=== PATIENT | female | born 1980 | race Caucasian/White ===

== ENCOUNTER 2020-07-17 08:58 | Emergency (ER) | payer MEDICAID ==
[~2020-07-17] VITALS: Ht 162.6 cm; Wt 80.0 kg
[~2020-07-17 08:58] MED LIST: ONDA8TAB9 PO
[2020-07-17 09:02] VITALS: BP 183/115
[2020-07-17] MEDS ORDERED: CLIN300C70 PO (09:49)
[2020-07-17] MEDS ORDERED: ondansetron 4mg rapidly disintigrating tab PO ONE (09:50)
[2020-07-17] MEDS ORDERED: HYDROcodone/acetaminophen 5mg/325mg tablet PO ONE (09:50)
== END 2020-07-17 10:10 | disposition home or self-care (01) ==
LOC: ER 08:59
DX: K08.89 Other specified disorders of teeth and supporting structures (principal); K21.9 Gastro-esophageal reflux disease without esophagitis; F32.9 Major depressive disorder, single episode, unspecified; Z72.89 Other problems related to lifestyle; Z98.890 Other specified postprocedural states; Z88.0 Allergy status to penicillin; Z79.899 Other long term (current) drug therapy
CPT/HCPCS: 99283

== ENCOUNTER 2020-07-30 07:44 | Emergency (ER) | payer MEDICAID ==
[~2020-07-30] VITALS: Ht 162.6 cm; Wt 69.5 kg
[2020-07-30 08:24] LABS: BASOPHILS # (AUTO) 0.1 X10'3 (0-0.2); BASOPHILS % (AUTO) 0.9 % (0-1); EOSINOPHILS # (AUTO) 0.1 X10'3 (0-0.9); EOSINOPHILS % (AUTO) 1.3 % (0-6); HEMOGLOBIN 14.4 g/dl (12.0-16.0); LYMPHOCYTES # (AUTO) 2.9 X10'3 (1.1-4.8); LYMPHOCYTES % (AUTO) 36.3 % (21-51); MEAN CORPUSCULAR HEMOGLOBIN 32.8 PG (27.0-31.0); MEAN CORPUSCULAR HGB CONC 34.3 g/dL (33.0-36.5); MEAN CORPUSCULAR VOLUME 95.8 FL (78-98); MEAN PLATELET VOLUME 7.7 FL (7.4-10.4); MONOCYTES # (AUTO) 0.7 X10'3 (0-0.9); MONOCYTES % (AUTO) 8.6 % (2-12); NEUTROPHILS # (AUTO) 4.2 X10'3 (1.8-7.7); NEUTROPHILS % (AUTO) 52.9 % (42-75); PLATELET COUNT 396 X10'3 (140-440); RED BLOOD COUNT 4.38 X10'6 (4.20-5.60); RED CELL DISTRIBUTION WIDTH 13.5 % (11.5-14.5)
[2020-07-30 08:33] LABS: CLARITY,URINE SLIGHTLY CLOUDY (Clear); COLOR,URINE YELLOW (Yellow); GLUCOSE, URINE NEGATIVE (Neg); KETONES,URINE NEGATIVE (Neg); LEUKOCYTE ESTERASE ,URINE NEGATIVE (Neg); NITRITES, URINE NEGATIVE (Neg); OCCULT BLOOD,URINE NEGATIVE (Neg); PROTEIN,URINE NEGATIVE (Neg); UROBILINOGEN,URINE 0.2 E.U/dL (0.2-1.0)
[2020-07-30 08:34] LABS: UA COLLECTION TYPE CLN CATCH MIDSTREAM; URINE HCG NEGATIVE (NEG)
[2020-07-30 08:40] LABS: BACTERIA,URINE 2+ /HPF (Neg); MUCUS STRANDS FEW /LPF (Neg); RBC,URINE NONE SEEN /HPF (0-2); SQUAMOUS EPITHELIAL CELL,UR MANY /LPF (FEW); WBC CLUMPS,URINE MODERATE /HPF (NEGATIVE)
[2020-07-30 08:41] LABS: ALANINE AMINOTRANSFERASE 21 U/L (12-78); ALBUMIN 3.5 G/DL (3.4-5.0); ALKALINE PHOSPHATASE 72 IU/L (46-116); ANION GAP 6 (8-16); ASPARTATE AMINO TRANSFERASE 17 U/L (10-37); BILIRUBIN,TOTAL 0.2 MG/DL (0.1-1.0); BLOOD UREA NITROGEN 10 MG/DL (7-18); BUN/CREATININE RATIO 10.3 (6.6-38.0); CALCIUM 8.3 MG/DL (8.5-10.1); CHLORIDE 103 MMOL/L (99-107); CREATININE 0.97 MG/DL (0.40-0.90); GLUCOSE 85 MG/DL (70-104); LIPASE 144 U/L (73-393); POTASSIUM 3.4 MMOL/L (3.5-5.1); SODIUM 138 MMOL/L (135-145); TOTAL CARBON DIOXIDE 29.1 MMOL/L (24-32); eGFR 64 ML/MIN
--- NOTE | 2020-07-30 09:00 | NUR ---
DR. JACOBS AT BEDSIDE
[2020-07-30] MEDS ORDERED: acetaminophen 325mg tablet PO ONE (09:05)
[2020-07-30] MEDS ORDERED: ibuprofen tablet 400 MG TABLET PO ONE (09:05)
--- NOTE | 2020-07-30 09:09 | NUR ---
Pt updated with plan of care and is awaiting US.
[2020-07-30] MEDS ORDERED: metroNIDAZOLE 500mg tablet PO ONE ×2 (09:20→10:05)
[2020-07-30] MEDS ORDERED: CefTRIAXone 1000mg IM Kit (w/lidocaine diluent) IM ONE ×2 (09:20→10:00)
[2020-07-30] MEDS ORDERED: azithromycin 250mg tablet PO ONE ×2 (09:20→10:00)
--- NOTE | 2020-07-30 09:41 | NUR ---
US at bedside.
[2020-07-30 10:23] VITALS: BP 157/106
== END 2020-07-30 10:24 | disposition home or self-care (01) ==
LOC: ER 07:45
DX: R10.30 Lower abdominal pain, unspecified (principal); N76.0 Acute vaginitis; K21.9 Gastro-esophageal reflux disease without esophagitis; F32.9 Major depressive disorder, single episode, unspecified; Z98.890 Other specified postprocedural states; Z88.0 Allergy status to penicillin; Z79.899 Other long term (current) drug therapy
CPT/HCPCS: 36415; 76856; 80053; 81001; 81025; 83690; 85025; 87491; 87591; 93976; 96372; 99284; J0696; J3490

== ENCOUNTER 2023-08-20 09:49 | Emergency (ER) | payer MEDICAID ==
[~2023-08-20] VITALS: Ht 162.6 cm; Wt 80.0 kg
[2023-08-20 09:54] VITALS: RESP 18; TEMP 97.8
[2023-08-20 11:00] VITALS: BP 118/83
[2023-08-20 12:01] VITALS: PULSE 85; O2SAT 99
--- NOTE | 2023-08-20 13:14 | NUR ---
PT REFUSED VITALS
== END 2023-08-20 14:29 | disposition left against medical advice (07) ==
LOC: ER 09:50
DX: R10.9 Unspecified abdominal pain (principal); Z53.21 Procedure and treatment not carried out due to patient leaving prior to being seen by health care provider
CPT/HCPCS: 99281

== ENCOUNTER → 2023-10-23 | Outpatient (CLI) | payer BC, MEDICAID ==
[2023-10-23 12:48] LABS: BASOPHILS % (AUTO) 0.5 % (0-1); EOSINOPHILS # (AUTO) 0.2 X10'3 (0-0.9); EOSINOPHILS % (AUTO) 3.1 % (0-6); HEMATOCRIT 40.7 % (35.0-45.0); HEMOGLOBIN 13.7 g/dl (12.0-16.0); LYMPHOCYTES # (AUTO) 2.5 X10'3 (1.1-4.8); LYMPHOCYTES % (AUTO) 32.8 % (21-51); MEAN CORPUSCULAR HEMOGLOBIN 29.4 PG (27.0-31.0); MEAN CORPUSCULAR HGB CONC 33.7 g/dL (33.0-36.5); MEAN CORPUSCULAR VOLUME 87.1 FL (78-98); MEAN PLATELET VOLUME 7.2 FL (7.4-10.4); MONOCYTES # (AUTO) 0.5 X10'3 (0-0.9); MONOCYTES % (AUTO) 7.1 % (2-12); NEUTROPHILS # (AUTO) 4.3 X10'3 (1.8-7.7); NEUTROPHILS % (AUTO) 56.5 % (42-75); PLATELET COUNT 357 X10'3 (140-440); RED BLOOD COUNT 4.67 X10'6 (4.20-5.60); RED CELL DISTRIBUTION WIDTH 14.3 % (11.5-14.5); WHITE BLOOD COUNT 7.7 X10'3 (4.5-11.0)
[2023-10-23 13:34] LABS: ALBUMIN 3.8 G/DL (3.4-5.0); ANION GAP 6 (8-16); BLOOD UREA NITROGEN 6 MG/DL (7-18); BUN/CREATININE RATIO 8.1 (10.0-20.0); CALCIUM 8.9 MG/DL (8.5-10.1); CHLORIDE 101 MMOL/L (99-107); CREATININE 0.74 MG/DL (0.40-0.90); GLUCOSE 89 MG/DL (70-104); SODIUM 134 MMOL/L (135-145); eGFR 86 ML/MIN
== END | disposition home or self-care (01) ==
LOC: LAB 12:07
PROVIDERS: ATTEND Physician Assistant
DX: R10.84 Generalized abdominal pain (principal); L98.8 Other specified disorders of the skin and subcutaneous tissue; Z87.19 Personal history of other diseases of the digestive system
CPT/HCPCS: 36415; 80048; 85025; 85651; 86140

== ENCOUNTER 2023-10-28 09:24 | Emergency (ER) | payer BC, MEDICAID ==
[~2023-10-28] VITALS: Ht 162.6 cm; Wt 74.2 kg
[2023-10-28 09:44] VITALS: TEMP 97.3
[2023-10-28 10:56] LABS: BASOPHILS % (AUTO) 0.4 % (0-1); EOSINOPHILS # (AUTO) 0.1 X10'3 (0-0.9); EOSINOPHILS % (AUTO) 2.1 % (0-6); HEMATOCRIT 40.3 % (35.0-45.0); HEMOGLOBIN 13.4 g/dl (12.0-16.0); LYMPHOCYTES # (AUTO) 2.5 X10'3 (1.1-4.8); LYMPHOCYTES % (AUTO) 37.8 % (21-51); MEAN CORPUSCULAR HEMOGLOBIN 28.7 PG (27.0-31.0); MEAN CORPUSCULAR HGB CONC 33.2 g/dL (33.0-36.5); MEAN CORPUSCULAR VOLUME 86.3 FL (78-98); MEAN PLATELET VOLUME 7.1 FL (7.4-10.4); MONOCYTES # (AUTO) 0.5 X10'3 (0-0.9); MONOCYTES % (AUTO) 8.1 % (2-12); NEUTROPHILS # (AUTO) 3.4 X10'3 (1.8-7.7); NEUTROPHILS % (AUTO) 51.6 % (42-75); PLATELET COUNT 392 X10'3 (140-440); RED BLOOD COUNT 4.67 X10'6 (4.20-5.60); RED CELL DISTRIBUTION WIDTH 13.8 % (11.5-14.5); WHITE BLOOD COUNT 6.5 X10'3 (4.5-11.0)
[2023-10-28 11:10] LABS: ALANINE AMINOTRANSFERASE 40 U/L (12-78); ALBUMIN 3.5 G/DL (3.4-5.0); ALBUMIN/GLOBULIN RATIO 0.8 (1.1-1.5); ALKALINE PHOSPHATASE 109 IU/L (46-116); ANION GAP 8 (8-16); ASPARTATE AMINO TRANSFERASE 26 U/L (10-37); BILIRUBIN,TOTAL 0.2 MG/DL (0.1-1.0); BLOOD UREA NITROGEN 9 MG/DL (7-18); BUN/CREATININE RATIO 12.7 (10.0-20.0); CALCIUM 9.6 MG/DL (8.5-10.1); CHLORIDE 102 MMOL/L (99-107); CREATININE 0.71 MG/DL (0.40-0.90); GLUCOSE 86 MG/DL (70-104); POTASSIUM 4.2 MMOL/L (3.5-5.1); SODIUM 138 MMOL/L (135-145); TOTAL PROTEIN 7.8 G/DL (6.4-8.2); eCRCL 88 ML/MIN; eGFR 90 ML/MIN
[2023-10-28 11:11] LABS: LIPASE 26 U/L (16-77)
[2023-10-28 12:26] VITALS: BP 137/82; PULSE 74; RESP 18; O2SAT 100
[2023-10-28] MEDS ORDERED: ondansetron/PF 4mg/2ml inj IV ONE (12:35)
[2023-10-28] MEDS ORDERED: morphine 4 MG/ML inj SYRINge IV ONE ×2 (12:35→14:35)
[2023-10-28 12:46] LABS: BILIRUBIN,URINE NEGATIVE (Neg); CLARITY,URINE SLIGHTLY CLOUDY (Clear); COLOR,URINE YELLOW (Yellow); GLUCOSE, URINE NEGATIVE (Neg); KETONES,URINE NEGATIVE (Neg); LEUKOCYTE ESTERASE ,URINE NEGATIVE (Neg); NITRITES, URINE NEGATIVE (Neg); OCCULT BLOOD,URINE NEGATIVE (Neg); PH,URINE 5.5 (4.8-8.0); PROTEIN,URINE NEGATIVE (Neg); UROBILINOGEN,URINE 0.2 E.U/dL (0.2-1.0)
[2023-10-28 13:06] LABS: UA COLLECTION TYPE CLN CATCH MIDSTREAM
[2023-10-28 13:07] LABS: SQUAMOUS EPITHELIAL CELL,UR MANY /LPF (FEW)
[2023-10-28 13:09] LABS: TRANSITIONAL EPI CELLS,URINE FEW /HPF
[2023-10-28 13:10] LABS: WBC,URINE 0-4 /HPF (0-4)
[2023-10-28 13:11] LABS: RBC,URINE 0-2 /HPF (0-2)
[2023-10-28 13:12] LABS: BACTERIA,URINE FEW /HPF (Neg)
[2023-10-28 13:14] LABS: MUCUS STRANDS FEW /LPF (Neg)
[2023-10-28] MEDS ORDERED: iohexol 300mg/ml 100ml inj. ONE (13:14)
[2023-10-28] MEDS ORDERED: METR-159 PO (14:30)
[2023-10-28] MEDS ORDERED: LEVO-65 PO (14:30)
[2023-10-28] MEDS ORDERED: HYDR-3965 PO (14:31)
== END 2023-10-28 15:14 | disposition home or self-care (01) ==
LOC: ER 09:25
DX: K52.9 Noninfective gastroenteritis and colitis, unspecified (principal)
CPT/HCPCS: 36415; 74177; 80053; 81001; 83690; 84702; 85025; 87210; 96374; 96375; 96376; 99285; J2270; J2405; J3490; Q9967

== ENCOUNTER 2024-06-23 13:55 | Emergency (ER) | payer BC, MEDICAID ==
[~2024-06-23] VITALS: Ht 162.6 cm; Wt 83.3 kg
[2024-06-23] MEDS ORDERED: VALA100031 PO ×2 (15:40→16:10)
[2024-06-23] MEDS ORDERED: OXYC-145 PO ×2 (15:41→16:10)
[2024-06-23] MEDS: ketorolac trometh 15mg/ml vial 15 MG/ML ML IM ONE (15:42)
[2024-06-23 16:52] VITALS: BP 132/74; PULSE 61; RESP 18; TEMP 98; O2SAT 98
== END 2024-06-23 16:54 | disposition home or self-care (01) ==
LOC: ER 13:56
DX: B02.9 Zoster without complications (principal); K21.9 Gastro-esophageal reflux disease without esophagitis; F32.A Depression, unspecified; Z88.0 Allergy status to penicillin; Z79.2 Long term (current) use of antibiotics; Z79.899 Other long term (current) drug therapy
CPT/HCPCS: 96372; 99283; J1885

== ENCOUNTER 2025-07-07 19:45 | Emergency (ER) | payer BC, MEDICAID ==
[~2025-07-07 19:45] MED LIST changes: +OXYC-145 PO; +VALA100031 PO
== END 2025-07-07 20:41 | disposition left against medical advice (07) ==
LOC: ER 19:46
DX: M79.673 Pain in unspecified foot (principal); Z53.21 Procedure and treatment not carried out due to patient leaving prior to being seen by health care provider; Z88.0 Allergy status to penicillin

== ENCOUNTER 2025-07-08 08:59 | Emergency (ER) | payer OTHER, MEDICAID ==
[~2025-07-08] VITALS: Ht 162.6 cm; Wt 69.4 kg
[2025-07-08 09:03] VITALS: BP 137/92; PULSE 79; RESP 16; O2SAT 99
--- NOTE | 2025-07-08 09:31 | Physician Documentation ---
History of Present Illness ~ Chief Complaint: Foot pain Stated Complaint: L FOOT PAIN WC Time Seen by MD: 09:07 Primary Medical Doctor: Aracely Benjamin Source: patient Mode of Arrival: POV Exam Limitations: no limitations HPI 44-year-old female with left foot pain since yesterday. She states that she was at work and was pushing a cart that brings in shopping carts and reports this cart weighs about 1000 lb and it rolled over her left foot. She has had pain in her left foot since this occurred. Pain is worse when she weight bears on her foot. No prior injuries to her foot. No pain in her ankle or anywhere else there was not an actual fall. Tetanus witin 5 years: No Medication Reconciliation Allergies: Coded Allergies: Penicillins (Verified Allergy, Intermediate, RASH/HIVES, 07/08/25) Scheduled Valacyclovir HCl (Valacyclovir), 1 TAB PO Q8H Scheduled PRN Ondansetron (Zofran Odt), 8 MG PO QID PRN for nausea/vomiting Oxycodone HCl/Acetaminophen (Percocet 5-325 mg Tablet), 1 TAB PO Q12H PRN PRN for pain Past Medical History Past Medical History: Diverticulitis, Diverticulosis, GERD, Depression Past Surgical History: other Alcohol Use: Occasionally Drug Use: none Lives In: Home Review of Systems All Other Systems at this time: Reviewed and Negative Physical Exam Vital Signs: Temperature: 97.6, Source: Temporal, Heart Rate: 79, Respiratory Rate: 16, BP: 137/92, Pulse Oximetry: 99, Weight: 69.400 Oxygen Flow Rate: 0 Physical Exam General Appearance: Alert, WD/WN. NAD. HEENT: NCAT, PERRL, EOMI. Neck: Supple, trachea midline. Cardiovascular: RRR. No m/r/g. Pedal pulses 2+ bilaterally Lungs: CTAB. Breathing unlabored Extremities: Left foot distal metatarsals and toes with ecchymosis, ecchymosis is most pronounced on the plantar surface of the foot area is tender to palpation where the ecchymosis is. No tenderness over the mid or proximal metatarsals no tenderness over the ankle joint. Skin: Warm/dry, normal color Neurological: Alert and oriented x4, ambulating favoring her right foot Psychiatric: Affect congruent with mood. Procedures Procedures Placed patient in a walking boot and crutches Progress Progress Note X-ray of left foot three views Shows proximal toe fracture of the greater toe no other fractures visualized, fracture does not appear dislocated Results/Orders Reviewed/noted all lab results: Yes Results/Orders Orders - SOFY ROGERS Foot, Complete (3vw Min) (07/08/25 09:30) Completed Orders - SOFY ROGERS Foot, Complete (3vw Min) (07/08/25 09:30) Vital Signs 07/08/25 09:03 Temp 97.6 Pulse 79 Resp 16 B/P (MAP) 137/92 Pulse Ox 99 O2 Flow Rate 0 Medical Decision Making Foot Diff Dx:Considerations: Include: Abrasion, Arthritis, Cellulitis, Contusion, Dislocation, DJD, Fracture-metatarsal, Fracture-phalynx, Fracture- tarsal, Gout, Hematoma, Ingrown toenail, Laceration, Malunion, Neurovascular injury, Open fracture, Paronychia, Puncture, Rheumatoid, Sprain, Septic, Subungual hematoma, Ulcer, Other Departure Time of Disposition: 09:43 Disposition: 01 HOME / SELF CARE / HOMELESS Impression: Primary Impression: Toe fracture, left Qualified Codes: S92.415A - Nondisplaced fracture of proximal phalanx of left great toe, initial encounter for closed fracture Condition: Stable Discharge Instructions: Toe Fracture Additional Instructions: Follow up with worker's comp provider regarding your toe fracture and when you can return to work We fitted you with a walking boot and crutches Referrals: NO PRIMARY CARE PROVIDER (PCP) Education Educated: Patient Educated regarding: diagnosis, treatment, need for follow up Signature Scribe Signature: x Attestation: SOFY Cervantes Jul 08, 2025 09:31
--- NOTE | 2025-07-08 10:05 | RADIOLOGY REPORT ---
EXAM: DI FOOT, COMPLETE (3VW MIN) CLINICAL INDICATION: foot run over yesterday-pain bruising of toes and distal metatarsals TECHNIQUE: DI FOOT, COMPLETE (3VW MIN) Comparison: None FINDINGS/IMPRESSION: Nondisplaced fracture distal 1st phalanx
[2025-07-08 10:09] VITALS: TEMP 97.6
== END 2025-07-08 10:11 | disposition home or self-care (01) ==
LOC: ER 09:00
DX: S92.415A Nondisplaced fracture of proximal phalanx of left great toe, initial encounter for closed fracture (principal); Z88.0 Allergy status to penicillin; Z88.8 Allergy status to other drugs, medicaments and biological substances; X58.XXXA Exposure to other specified factors, initial encounter; Y93.89 Activity, other specified; Y92.89 Other specified places as the place of occurrence of the external cause; Y99.8 Other external cause status
CPT/HCPCS: 73630; 99283; L4360

== ENCOUNTER 2025-08-31 06:37 | Day surgery (SDC) | payer BC, MEDICAID, OTHER ==
--- NOTE | 2025-08-22 12:06 | ELECTROCARDIOGRAPH REPORT ---
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 ARCENIO Almaraz Measurements Intervals [place] Rate: 73 P: 55 ID: [id number] QRS: 69 QRSD: 98 T: 71 QT: 389 QTc: 429 Interpretive Statements Sinus rhythm Short ID interval Electronically Signed On 08-22-2025 15:43:[address] ARCENIO Almaraz Please click the below link to view image of tracing.
[2025-08-22 12:22] LABS: MEAN PLATELET VOLUME 7.5 FL (7.4-10.4); PRE OP HEMATOCRIT 42.9 % (35.0-45.0); PRE OP HEMOGLOBIN 14.3 g/dL (12.0-16.0); PRE OP PLATELET COUNT 382 X10'3 (140-440); PRE OP WHITE BLOOD COUNT 8.2 10'3 (4.8-10.8); RED CELL DISTRIBUTION WIDTH 14.8 % (11.5-14.5)
[2025-08-22 12:37] LABS: PRE OP INR 1.0 INR; PRE OP PARTIAL THROMB. TIME 27.0 SECONDS (22-32); PRE OP PROTIME 10.0 SECONDS (9.0-12.0)
[2025-08-22 12:45] LABS: CREATININE 1.03 MG/DL (0.40-0.90); PRE OP ALT 38 U/L (30-65); PRE OP ANION GAP 6 (8-16); PRE OP AST 26 U/L (10-37); PRE OP BILIRUB, TOTAL 0.5 MG/DL (0.0-1.0); PRE OP GLUCOSE 105 MG/DL (70-104); PRE OP POTASSIUM 4.0 MMOL/L (3.4-5.1); PRE OP SODIUM 136 MMOL/L (135-145); TOTAL CARBON DIOXIDE 29.5 MMOL/L (24-32); eGFR 58 ML/MIN
--- NOTE | 2025-08-22 13:08 | RADIOLOGY REPORT ---
DI CHEST,TWO VIEWS CLINICAL HISTORY: PREOP COMPARISON: None TECHNIQUE: Frontal and lateral view of the chest was obtained FINDINGS: Lines and Tubes: None Lungs: No focal consolidation. Pleura: No effusion. No pneumothorax. Cardiomediastinal contours: Unremarkable Bones: No acute osseous abnormality. IMPRESSION: No acute cardiopulmonary disease.
[~2025-08-31] VITALS: Ht 162.6 cm; Wt 68.2 kg
[2025-08-31] VITALS (8 sets, daily range): BP systolic 120–147; BP diastolic 76–88; PULSE 61–79; RESP 13–16; TEMP 97.9; O2SAT 79–100
[2025-08-31] MEDS: ceFAZolin 2gm/dext,iso 50mL 50 ML IV ONE (05:30)
[~2025-08-31 06:37] MED LIST changes: +ESTR1PAT30 TD; -ONDA8TAB9 PO; -OXYC-145 PO; +PROG100C11 PO; +TEST5GEL18 TOP; +TRAZ-256 PO; -VALA100031 PO
[2025-08-31] MEDS ORDERED: BUPIVAcaine 0.5% inj/PF 30 ML ONE (07:02)
[2025-08-31] MEDS ORDERED: LIDOcaine 1% W/epiNEPHrine 1:100,000 20ml vial ONE (07:03)
[2025-08-31] MEDS: ringers solution, lacted 1,000 ML IV SCH (07:11)
[2025-08-31 08:40] LABS: LEUKOCYTE ESTERASE ,URINE TRACE (Neg); NITRITES, URINE NEGATIVE (Neg); OCCULT BLOOD,URINE NEGATIVE (Neg)
[2025-08-31] MEDS ORDERED: fentaNYL/PF 50MCG/1 ML 2ML syringe ONE (08:41)
[2025-08-31] MEDS ORDERED: midazolam 1 mg/ML 2ml injection ONE (08:42)
[2025-08-31 08:51] LABS: UA COLLECTION TYPE NON-SPECIFIED
[2025-08-31 08:53] LABS: MUCUS STRANDS NONE SEEN /LPF (Neg); RENAL CELLS, URINE FEW /HPF; SQUAMOUS EPITHELIAL CELL,UR MODERATE /LPF (FEW)
[2025-08-31] MEDS ORDERED: LIDOcaine 1% (10mg/ml)w/preservative inj. 20ml MDV ONE (09:04)
[2025-08-31] MEDS: BUPIVAcaine 0.5% inj/PF 30 ml vial IJ ONE (09:20)
[2025-08-31] MEDS: LIDOcaine 1% 30ml preserv. free vial IJ ONE (09:20)
[2025-08-31] MEDS ORDERED: acetaminophen 1,000mg/100ml IV 100 ML IV PRN (09:30)
[2025-08-31] MEDS ORDERED: labetalol 5mg/ml 20ml inj. IV PRN (09:30)
[2025-08-31] MEDS ORDERED: labetalol 20mg/4ml (5mg/ml) syringe IV PRN (09:30)
[2025-08-31] MEDS ORDERED: ringers solution, lacted 1,000 ML IV SCH (09:30)
[2025-08-31] MEDS ORDERED: HYDROmorphone/PF 0.2 MG/ML SYRINGE IV PRN ×2 (09:30)
[2025-08-31] MEDS ORDERED: ondansetron/PF 4mg/2ml inj IV PRN (09:30)
[2025-08-31] MEDS ORDERED: fentaNYL/PF 50MCG/1 ML 2ML syringe IV PRN (09:30)
[2025-08-31] MEDS ORDERED: ondansetron/PF 4mg/2ml inj ONE (09:43)
[2025-08-31] MEDS ORDERED: propofol inj 20 ML IV ONE (09:43)
[2025-08-31] MEDS ORDERED: dexamethasone sod phosphate 4mg/ml inj. ONE (09:43)
[2025-08-31] MEDS: fentaNYL/PF 50MCG/1 ML 2ML syringe IV PRN (10:13)
--- NOTE | 2025-08-31 12:08 | OPERATIVE REPORT ---
DATE OF SURGERY: 08/31/2025 DICTATING PHYSICIAN: Rodri Contreras DPM SURGEON: Rodri Contreras DPM PREOPERATIVE DIAGNOSIS: Painful left hallux interphalangeal joint with degenerative changes noted at the hallux interphalangeal joint. POSTOPERATIVE DIAGNOSIS: Painful left hallux interphalangeal joint with degenerative changes noted at the hallux interphalangeal joint. PROCEDURE: Fusion of the hallux interphalangeal joint, left hallux. INDICATIONS FOR SURGERY: Pain, angular deformity of the toe following the intraarticular fracture to the interphalangeal joint of the hallux. DESCRIPTION OF PROCEDURE: It should be noted intraoperatively that the bone quality to the distal phalanx was poor. More aggressive debridement and resection had to be performed to get bleeding cancellous bone. The margins of the bone at the level of the joint level was a brownish yellowish discoloration with no discernible blood supply to that area. The C-arm was used during the case. Tourniquet was inflated to 250 mmHg for the left lower extremity and the left thigh after exsanguinating the left lower extremity. The procedure is as follows: The patient was escorted to the Operating Room Suite where she was prepared and draped in the usual sterile technique. A transverse incision was made. Two semi-elliptical incisions were made at the level of the hallux interphalangeal joint transversely. The extensor hallucis longus tendon was identified, resected, and then tagged for future closure. An arthrotomy was performed at the hallux interphalangeal joint. Resection of the distal aspect of the proximal phalanx was performed with a sagittal saw. An attempt was made to debride the articular cartilage off of the distal phalanx with a bone rongeur and also with curettes, but the bone did not look healthy. It was a brownish yellowish discolored bone area. Therefore, a more aggressive resection was performed with the use of the microsagittal saw. The unhealthy bone was resected down to bleeding cancellous bone. Irricept was used for irrigation. Three 0.062 K-wires were then used across the joint to maintain good and appropriate alignment of that joint for fusion. Because of the poor quality of bone, DBM was also applied to the joint surfaces. The K-wires were bent and then capped accordingly. The C-arm confirmed appropriate alignment of not only the K-wires, but also the hallux interphalangeal joint fusion site. Tissues were closed in layers and then the appropriate postoperative dressings were applied. Capillary refill time was noted to be instantaneous for toes 1 through 5, left foot. The appropriate postoperative dressings were applied and the patient was escorted to PACU. Rodri Contreras DPM TID: [id number] RECEIPT: [id number] SS/AP MTDD
== END 2025-08-31 10:50 | disposition home or self-care (01) ==
LOC: PAS 06:37
PROVIDERS: ATTEND Podiatrist Foot & Ankle Surgery
DX: M19.072 Primary osteoarthritis, left ankle and foot (principal); R94.31 Abnormal electrocardiogram [ECG] [EKG]; F41.9 Anxiety disorder, unspecified; G47.00 Insomnia, unspecified; Z87.891 Personal history of nicotine dependence; Z79.890 Hormone replacement therapy; Z79.899 Other long term (current) drug therapy; Z90.49 Acquired absence of other specified parts of digestive tract; Z90.710 Acquired absence of both cervix and uterus; Z98.890 Other specified postprocedural states; Z88.0 Allergy status to penicillin
CPT/HCPCS: 28755; 36415; 71046; 73620; 80053; 81001; 82948; 85025; 85610; 85730; 87088; 93005; A6222; C1713; J0665; J1100; J2003; J2250; J2405; J2704; J3010; J3490; J7030; J7120; Z7506; Z7508; Z7512; 76000; A4618; A6253; A6446; A6449; A6455; A7000

== ENCOUNTER 2025-10-11 13:45 | Outpatient (CLI) | payer OTHER ==
--- NOTE | 2025-10-11 14:58 | RADIOLOGY REPORT ---
EXAM: DI FOOT, COMPLETE (3VW MIN) CLINICAL INDICATION: Displaced fracture of fourth metatarsal bone, right foot TECHNIQUE: DI FOOT, COMPLETE (3VW MIN) COMPARISON: DI FOOT, COMPLETE (3VW MIN) on DOS: 07/08/25 FINDINGS/IMPRESSION: Postsurgical changes involving the 1st digit with 2 surgical K pins present.
== END 2025-10-11 23:59 | disposition home or self-care (01) ==
LOC: RAD 13:45
PROVIDERS: ATTEND Podiatrist Foot & Ankle Surgery
DX: S92.342A Displaced fracture of fourth metatarsal bone, left foot, initial encounter for closed fracture (principal); Z98.890 Other specified postprocedural states; X58.XXXA Exposure to other specified factors, initial encounter; Y93.89 Activity, other specified; Y92.89 Other specified places as the place of occurrence of the external cause; Y99.8 Other external cause status
CPT/HCPCS: 73630